=== PATIENT | female | born 1995 | race Two or more races ===

== ENCOUNTER 2017-02-13 07:25 | Inpatient (IN) | payer SELFPAY ==
[2017-02-13 08:23] VITALS: BMI 26.4
[2017-02-13 08:38] LABS: BASOPHIL 0.2 % (0-2.0); EOSINOPHIL 1.8 % (0-4.5); MCHC 32.8 g/dl (32.0-36.0); MEAN CELL VOLUME 85.3 fl (80-96); MEAN PLT VOLUME 9.5 fl (7.5-11.1); PLATELET COUNT 200 K/MM3 (134-434); RDW 14.2 % (11.6-15.6); WHITE BLOOD COUNT 9.3 K/mm3 (4.0-10.0)
[2017-02-13 09:12] LABS: ANION GAP 8 (8-16); CALCIUM 8.2 mg/dL (8.5-10.1); CO2 21 mmol/L (21-32); CREATININE 0.6 mg/dL (0.55-1.02); GLUCOSE,RANDOM 101 mg/dL (74-106)
[2017-02-13 09:14] LABS: INR 0.96 (0.82-1.09); PROTHROMBIN TIME (PATIENT) 10.5 SEC (9.98-11.88)
[2017-02-13 09:17] LABS: ACTIVATED PTT 27.6 SECONDS (26.9-34.4)
[2017-02-13] MEDS ORDERED: BUTORPHANOL TARTRATE 1 MG/ML VIAL IVPB ONE (09:38)
[2017-02-13] MEDS ORDERED: PROMETHAZINE HCL 25 MG/1 ML VIAL IVPUSH ONE ×2 (09:38→16:40)
--- NOTE | 2017-02-13 09:44 | HP ---
Past Medical History - Primary Care Physician PCP:: Roselia Tan - Admission Chief Complaint: Induction of labor at 39 week History of Present Illness: 21 yo EDC 02/18/17 EGA 39 weeks admitted for induction of labor History Source: Patient Limitations to Obtaining History: No Limitations - Past Medical History ...: 1 ...Para: 0 ...Term: 0 ...: 0 ...Spon : 0 ...Induced : 0 ...Multiple Gestation: 0 ...LMP: 05/28/16 ...EDC by Sono: 02/16/17 - Past Surgical History Past Surgical History: Yes: None Hx Myomectomy: No Hx Transabdominal Cerclage: No - Smoking History Smoking history: Never smoked Have you smoked in the past 12 months: No - Alcohol/Substance Use Hx Alcohol Use: No History of Substance Use: reports: None - Social History History of Recent Travel: No Home Medications - Allergies Allergies/Adverse Reactions: Allergies Allergy/AdvReac Type Severity Reaction Status Date / Time banana Allergy Intermediate Itching Verified 02/13/17 08:29 apples Allergy Intermediate Itching Uncoded 02/13/17 08:29 avocado Allergy Intermediate Itching Uncoded 02/13/17 08:29 - Home Medications Home Medications: Ambulatory Orders Vit No.130/Iron/FA [ Vitamins] 1 each PO DAILY 02/13/17 Review of Systems - Review of Systems Constitutional: reports: No Symptoms Eyes: reports: No Symptoms HENT: reports: No Symptoms Neck: reports: No Symptoms Cardiovascular: reports: No Symptoms Respiratory: reports: No Symptoms Gastrointestinal: reports: No Symptoms Genitourinary: reports: No Symptoms Breasts: reports: No Symptoms Reported Musculoskeletal: reports: No Symptoms Integumentary: reports: No Symptoms Neurological: reports: No Symptoms Endocrine: reports: No Symptoms Hematology/Lymphatic: reports: No Symptoms Psychiatric: reports: No Symptoms Physical Exam - Maternity Vital Signs: Vital Signs Temperature 97.8 F 02/13/17 08:08 Pulse Rate 84 02/13/17 08:08 Respiratory Rate 16 02/13/17 08:08 Blood Pressure 106/73 02/13/17 08:08 O2 Sat by Pulse Oximetry (%) Constitutional: Yes: Well Nourished, No Distress Cardiovascular: Yes: WNL, Regular Rate and Rhythm Breast(s): Yes: WNL - Abdominal Exam/OB Fundal Height: 39 Number of Fetuses: Single Presentation: Vertex Category: I Accelerations: Non-Uniform Decelerations: None - Vaginal Exam/OB Amniotic Membrane Status: Intact Presentation: Vertex/Position - Physical Exam Musculoskeletal: Yes: WNL Extremities: Yes: WNL Edema: No - Labs Lab Results: CBC, BMP 02/13/17 08:25 02/13/17 08:25 Hemorrhage Risk Assessment - Risk Factors Risk Score: 0 Risk Level: Low Risk Problem List - Problems (1) Elective induction of labor planned Code(s): [id number] - Assessment/Plan IUP at 39 week induction of labor Cat 1 Plan cervidil
[2017-02-13] MEDS ORDERED: ELECTROLYTE-148 SOLN 1,000 ML IV SCH (09:45)
[2017-02-13] MEDS ORDERED: DINOPROSTONE 10 MG VAGINAL SUPPOSITORY VG ONE (10:00)
[2017-02-13] MEDS ORDERED: TUBERCULIN PPD 5 TU/0.1ML SYRINGE (IN PATIENT USE ONLY) ID ONE (11:00)
[2017-02-13] MEDS ORDERED: BUTORPHANOL TARTRATE 1 MG/ML VIAL IVPUSH ONE (16:10)
[2017-02-13] MEDS ORDERED: WITCH HAZEL 50% (TUCKS) 40 PAD/JAR PAD TP PRN (18:04)
[2017-02-13] MEDS ORDERED: BENZOCAINE 28 GM HEMORRHOIDAL OINTMENT PR PRN (18:04)
[2017-02-13] MEDS ORDERED: BISACODYL 10 MG SUPP.RECT RC PRN (18:04)
[2017-02-13] MEDS ORDERED: METHYLERGONOVINE MALEATE 0.2 MG/1 ML AMP IM PRN (18:04)
[2017-02-13] MEDS ORDERED: BENZOCAINE 20% 57 GM BOTTLE TP PRN (18:04)
[2017-02-13] MEDS ORDERED: OXYTOCIN 20 UNITS in 0.9% NS 1,000 ML IV ONE (18:10)
--- NOTE | 2017-02-13 18:24 | PN ---
Ante-Partal Exam - Subjective Subjective: Pt feels like pushing Vital Signs: Vital Signs Temperature 97.8 F 02/13/17 14:51 Pulse Rate 56 L 02/13/17 14:51 Respiratory Rate 20 02/13/17 14:51 Blood Pressure 122/75 02/13/17 14:51 O2 Sat by Pulse Oximetry (%) - Contractions Contractions: Yes - Exam during Labor Variability: Moderate Monitor Decelerations: None Exam: Vaginal Dilatation (cm): 10 Amniotic Membrane Status: Ruptured Presentation: Vertex - Intrapartum Hemorrhage Risk Risk Score: 0 Risk Level: Low Risk
--- NOTE | 2017-02-13 18:34 | PN ---
Delivery - Delivery Vaginal Delivery: No Problems Type of Anesthesia: None Episiotomy/Laceration: None EBL (cc): 500 (Shoulders delivered without complications. post bleeding and clots removed no lacerations noted pitocin given) Delivery, Single - Stages of Labor Placenta: Yes: Spontaneous - Condition of Infant Infant Gender: Male Position: OA - [place] Feeding Plan Initial Plan: Exclusive throughout hospitalization
[2017-02-13] MEDS: ACETAMINOPHEN 325 MG TABLET (FP) PO PRN (23:24)
[2017-02-13] MEDS: IBUPROFEN 600 MG TABLET (FP) PO PRN (23:24)
--- NOTE | 2017-02-14 07:09 | PN ---
Post Note - Post Date of Delivery: 02/13/17 Post Day: 1 Vital Signs: Vital Signs - 24 hr 02/13/17 02/13/17 02/13/17 08:08 11:42 12:56 Temperature 97.8 F 97.8 F Pulse Rate 84 62 66 Respiratory 16 20 20 Rate Blood Pressure 106/73 116/71 122/59 O2 Sat by Pulse Oximetry (%) 02/13/17 02/13/17 02/13/17 14:00 14:51 18:30 Temperature 98.4 F 97.8 F Pulse Rate 76 56 L 74 Respiratory 20 20 20 Rate Blood Pressure 130/71 122/75 114/59 O2 Sat by Pulse 100 Oximetry (%) 02/13/17 02/13/17 02/13/17 18:45 19:00 19:15 Temperature 98.4 F Pulse Rate 65 78 71 Respiratory 20 20 20 Rate Blood Pressure 116/61 113/64 114/64 O2 Sat by Pulse 99 100 100 Oximetry (%) 02/13/17 02/13/17 02/13/17 19:30 19:50 23:26 Temperature 100.3 F H 98.6 F Pulse Rate 74 64 Respiratory 20 20 Rate Blood Pressure 122/57 124/69 O2 Sat by Pulse 100 Oximetry (%) 02/14/17 05:17 Temperature 98.8 F Pulse Rate 80 Respiratory 20 Rate Blood Pressure 111/55 O2 Sat by Pulse Oximetry (%) Labs: Laboratory Results - last 24 hr 02/13/17 02/13/17 02/13/17 08:06 08:25 08:25 WBC 9.3 RBC 3.45 L Hgb 9.7 L Hct 29.4 L MCV 85.3 MCHC 32.8 RDW 14.2 Plt Count 200 MPV 9.5 Neutrophils % 64.0 Lymphocytes % 27.4 Monocytes % 6.6 Eosinophils % 1.8 Basophils % 0.2 INR 0.96 PTT (Actin FS) 27.6 Sodium Potassium Chloride Carbon Dioxide Anion Gap BUN Creatinine Random Glucose Calcium RPR Titer Blood Type AB POSITIVE Antibody Screen 02/13/17 02/13/17 02/13/17 08:25 08:25 08:25 WBC RBC Hgb Hct MCV MCHC RDW Plt Count MPV Neutrophils % Lymphocytes % Monocytes % Eosinophils % Basophils % INR PTT (Actin FS) Sodium 139 Potassium 3.6 Chloride 110 H Carbon Dioxide 21 Anion Gap 8 BUN 12 Creatinine 0.6 Random Glucose 101 Calcium 8.2 L RPR Titer Nonreactive Blood Type AB POSITIVE Antibody Screen Negative - Subjective Subjective: No Complaints - Objective Afebrile: Yes Breast: Not engorged Abdomen: Soft, Non-tender Uterus: Fundus firm Vagina: Scant lochia Extremities: Non-tender - Assessment/Plan (1) Elective induction of labor planned Assessment: S/P Normal Plan: Routine Care
[2017-02-14 08:02] LABS: BASOPHIL 0.1 % (0-2.0); EOSINOPHIL 0.2 % (0-4.5); MCH 27.7 pg (25.7-33.7); MCHC 32.5 g/dl (32.0-36.0); MEAN CELL VOLUME 85.1 fl (80-96); MEAN PLT VOLUME 9.5 fl (7.5-11.1); NEUTROPHILS 73.8 % (42.8-82.8); PLATELET COUNT 194 K/MM3 (134-434); RDW 14.1 % (11.6-15.6); WHITE BLOOD COUNT 14.3 K/mm3 (4.0-10.0)
[2017-02-14] MEDS: ACETAMINOPHEN 325 MG TABLET (FP) PO PRN (15:54)
[2017-02-14] MEDS: IBUPROFEN 600 MG TABLET (FP) PO PRN (15:55)
[2017-02-14] MEDS ORDERED: SENNOSIDES/DOCUSATE COMBO (SENNA PLUS) TABLET (UD) PO PRN (20:54)
[2017-02-15] MEDS: ACETAMINOPHEN 325 MG TABLET (FP) PO PRN (00:08)
[2017-02-15] MEDS: IBUPROFEN 600 MG TABLET (FP) PO PRN (00:08)
[2017-02-15 07:36] VITALS: BP 120/70; PULSE 75; TEMP 98.4
--- NOTE | 2017-02-15 09:17 | DS ---
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 Vital Signs: Vital Signs Temperature 98.4 F 02/15/17 07:33 Pulse Rate 75 02/15/17 07:33 Respiratory Rate 18 02/15/17 07:33 Blood Pressure 120/70 02/15/17 07:33 O2 Sat by Pulse Oximetry (%) 100 02/13/17 19:30 Constitutional: Yes: Well Nourished, No Distress Cardiovascular: Yes: WNL Respiratory: Yes: WNL Gastrointestinal: Yes: WNL ....Post : Yes: Uterus firm, Uterus non-tender Neurological: Yes: WNL, Alert, Oriented Labs: CBC, BMP 02/14/17 07:20 02/13/17 08:25 Delivery - Delivery Vaginal Delivery: No Problems Type of Anesthesia: None Episiotomy/Laceration: None EBL (cc): 500 (Shoulders delivered without complications. 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 You may walk unlimited nette of and climb stairs. You may resume driving the car when you feel safe and comfortable behind the wheel. No sexual activity as instructed. Wound care If you have a bandage, leave it on, and keep dry for 48-72 hours. After that time discard the outer bandage. If they are tapes on the skin under the out of bandage leave them in place. They will peel off in the next 7 to 10 days. Do Not Peel them off. You may shower the day after surgery. If there are tapes present on the skin, you may shower over them. Diet There are no dietary restrictions. Eat healthy, high-fiber foods. Drink 6 to 8 glasses of liquid each day. This will assist in keeping your bowels are regular. Pain management You may take Tylenol or acetaminophen or Ibuprofen (for example, Motrin, Advil etc.) from my pain prescription medication is ordered should be taken as prescribed for moderate to severe pain. Call MD for any of the following: Severe pain not relieved by medication Fever of 101 or higher Excessive bleeding or drainage on dressing Inability to urinate Referrals: Roselia Tan MD [Staff Physician] - Disposition: HOME - Home Medications Comprehensive Discharge Medication List: Ambulatory Orders Vit No.130/Iron/FA [ Vitamins] 1 each PO DAILY 02/13/17 Ibuprofen [Motrin -] 600 mg PO QID PRN #28 tablet 02/14/17
== END 2017-02-15 12:10 | disposition home or self-care (01) | DRG 560 ==
LOC: JLDR 07:25 → J3W 19:56
PROVIDERS: ADMIT Obstetrics & Gynecology; ATTEND Obstetrics & Gynecology
PROC: 10E0XZZ Delivery of Products of Conception, External Approach (ICD-10-PCS; principal; 2017-02-13)
DX: O80 Encounter for full-term uncomplicated delivery (principal); Z3A.39 39 weeks gestation of pregnancy; Z37.0 Single live birth
CPT/HCPCS: 36415; 59409; 80048; 85025; 85610; 85730; 86593; 86850; 86900; 86901

== ENCOUNTER 2021-12-27 09:40 | Emergency (ER) | payer OTHER ==
[2021-12-27 10:11] VITALS: BP 108/56; PULSE 82; TEMP 98.5; BMI 28.4
[2021-12-27] MEDS ORDERED: ACETAMINOPHEN 325 MG TABLET (FP) PO ONE (10:30)
[2021-12-27] MEDS ORDERED: ACETAMINOPHEN 325 MG TABLET (FP) ONE (10:41)
[2021-12-27 12:13] LABS: BASO % 0.9 % (0-2.0); EOS % 3.2 % (0-4.5); HEMATOCRIT 38.6 % (32.4-45.2); HEMOGLOBIN 12.8 GM/dL (10.7-15.3); LYMPH % 24.4 % (8-40); MCH 29.8 pg (25.7-33.7); MCHC 33.1 g/dl (32.0-36.0); MEAN PLT VOLUME 7.8 fl (7.5-11.1); MONO % 5.9 % (3.8-10.2); NEUT % 65.6 % (42.8-82.8); PLATELET COUNT 353 10^3/uL (134-434); RBC 4.29 M/mm3 (3.60-5.2); RDW 13.3 % (11.6-15.6); WHITE BLOOD COUNT 9.3 K/mm3 (4.0-10.0)
[2021-12-27 12:36] LABS: CALCIUM 9.2 mg/dL (8.5-10.1)
[2021-12-27 12:37] LABS: ALBUMIN 3.5 g/dl (3.4-5.0); BLOOD UREA NITROGEN 8.3 mg/dL (7-18)
[2021-12-27 12:40] LABS: CREATININE 0.6 mg/dL (0.55-1.3)
[2021-12-27 12:42] LABS: BILIRUBIN,TOTAL 0.7 mg/dL (0.2-1); TOT PROT 6.7 g/dl (6.4-8.2)
== END 2021-12-27 15:10 | disposition left against medical advice (07) ==
LOC: JER 09:40
DX: O26.891 Other specified pregnancy related conditions, first trimester (principal); R10.31 Right lower quadrant pain; Z3A.09 9 weeks gestation of pregnancy
CPT/HCPCS: 36415; 76801-TC; 80053; 84702; 85025; 86850; 86900; 86901; 99284-25